=== PATIENT | female | born 1965 | race Caucasian/White ===

== ENCOUNTER 2020-08-02 06:15 | Emergency (ER) | payer BC ==
[2020-08-02 06:22] VITALS: TEMP 97.6; BMI 26.6
--- NOTE | 2020-08-02 06:41 | PDOC ---
History of Present Illness - General Chief Complaint: Pain, Acute Stated Complaint: TIGHTNESS IN CHEST,PAIN X 3 DAYS Time Seen by Provider: 08/02/20 06:29 History Source: Patient Exam Limitations: No Limitations - History of Present Illness Initial Comments: 08/02/20 06:41 This is a 54-year-old female who comes in complaining of chest tightness x3 days. Patient denies any radiation, nausea, diaphoresis or any other associated symptoms. Patient said she has been very stressed out and her blood pressure has been elevated however she does deny history of hypertension in the past. Patient's blood pressure was elevated here until we got the cardiogram once we got the cardiogram it dropped almost 50 points. As soon as she relaxed and her symptoms pretty much resolved. Allergies: as per nursing notes Past Medical History: none Social history: Lives with family. No smoking. No alcohol. No illicit drugs. Surgical history: None General: No fevers or chills, no weakness, no weight loss HEENT: No change in vision. No sore throat,. No ear pain CardioVascular: + chest discomfort. No shortness of breath Respiratory:No cough, or wheezing. Gastrointestinal: no nausea, vomiting, diarrhea or constipation, No rectal bleeding Genitourinary: No dysuria, hematuria, or frequency Musculoskeletal: No joint or muscle pain or swelling Neurologic: No headache, vertigo, dizziness or loss of consciousness Psychiatric: nor depression Skin: No rashes or easy bruising Endocrine: no increased thirst or abnormal weight change Allergic: no skin or latex allergy All other systems reviewed and normal Exam: General: Well-nourished well-developed individual, no acute distress HEENT: Throat: Normal, tonsils normal, no erythema or exudate Neck: Supple, no meningeal signs, no lymphadenopathy Eyes::Pupils equal reactive and round, extraocular motion intact Chest: Nontender to palpation Cardiac: S1-S2 normal, regular rate and rhythm, no murmurs rubs or gallops Respiratory: Lungs clear to auscultation bilateral Abdomen: Soft, nondistended, normal bowel sounds, there is no tenderness on palpation diffusely Extremities: Warm, dry, no cyanosis, clubbing, or edema Skin: No rashes Neuro: Alert and oriented x3, CN II - XII intact, nonfocal exam with normal strength, normal sensation, normal reflexes, normal gait, Psych: Normal mood and affect EKG shows normal sinus rhythm at a rate of [address]-T wave changes normal EKG. Cardiac enzymes and troponin were sent. If they are negative patient will be discharged and follow-up with her primary care doctor. Past History - Medical History Allergies/Adverse Reactions: Allergies Allergy/AdvReac Type Severity Reaction Status Date / Time Sulfa (Sulfonamide Allergy Severe Hives Verified 08/02/20 06:16 Antibiotics) Home Medications: Ambulatory Orders NK [No Known Home Medication] 08/02/20 Anemia: No Asthma: No Cancer: No Cardiac Disorders: No CVA: No COPD: No CHF: No Dementia: No Diabetes: No GI Disorders: No Disorders: No HTN: No Hypercholesterolemia: No Liver Disease: No Seizures: No Thyroid Disease: No - Reproductive History Is Patient Now?: No - Psycho-Social/Smoking History Smoking History: Never smoked Have you smoked in the past 12 months: No Information on smoking cessation initiated: No - Substance Abuse Hx (Audit-C & DAST Scrn) How often the patient has a drink containing alcohol: Never Score: In Men: 4 or > Positive; In Women: 3 or > Positive: 0 Screen Result (Pos requires Nsg. Audit-10AR): Negative In the last yr the pt used illegal drug/Rx for NonMed reason: No Score: Yes response is considered Positive: 0 Screen Result (Positive result requires Nsg. DAST-10): Negative Cardiac Specific PMH - Complaint Specific PMHX Pacemaker: No *Physical Exam - Vital Signs Last Vital Signs Temp Pulse Resp BP Pulse Ox 97.6 F 80 16 133/78 100 08/02/20 06:18 08/02/20 06:18 08/02/20 06:18 08/02/20 06:35 08/02/20 06:18 Heart Score/ECG Review - History History: Slightly suspicious - Electrocardiogram EKG: Normal - Age Age: 45-65 - Risk Factors Based on the list above the patient has:: No risk factors known - Troponin Troponin: </= normal limit - Score Heart Score - Total: 1 Discharge - Discharge Information Problems reviewed: Yes Clinical Impression/Diagnosis: Chest pain Qualifiers: Chest pain type: unspecified Qualified Code(s): R07.9 - Chest pain, unspecified Condition: Stable Disposition: HOME - Admission No - Follow up/Referral - Patient Discharge Instructions Additional Instructions: Follow-up with your primary care doctor who will probably refer you to a core winder machine operator for a stress test,' Return to the emergency department immediately with ANY new, persistent or worsening symptoms. Continue any medications as previously prescribed by your physician. You should follow up with your primary doctor as soon as possible regarding [facility] emergency department visit. . Please make sure your doctor reviews the results of your emergency evaluation. Thank you for coming to the Emergency Department today for your care. It was a pleasure to see you today. Please note that your evaluation is INCOMPLETE until you follow-up with your doctor. - Post Discharge Activity
[2020-08-02 08:37] VITALS: BP 141/81; PULSE 60
--- NOTE | 2020-08-02 08:37 | PDOC ---
*Physical Exam - Vital Signs Last Vital Signs Temp Pulse Resp BP Pulse Ox 97.6 F 80 16 133/78 100 08/02/20 06:18 08/02/20 06:18 08/02/20 06:18 08/02/20 06:35 08/02/20 06:18 - Physical Exam 08/02/20 08:36 Repeat BP 141/81 Troponin less than 0.03. EKG reviewed. Normal No further symptoms patient feels fine looks well Discharge to follow-up primary physician. Return to ER if further symptoms ED Treatment Course - ADDITIONAL ORDERS Additional order review: Laboratory Results 08/02/20 08/02/20 06:45 06:45 Creatine Kinase 103 Troponin I < 0.03 Discharge - Discharge Information Problems reviewed: Yes Clinical Impression/Diagnosis: Chest pain Qualifiers: Chest pain type: unspecified Qualified Code(s): R07.9 - Chest pain, unspecified Condition: Stable Disposition: HOME - Follow up/Referral - Patient Discharge Instructions Additional Instructions: Follow-up with your primary care doctor who will probably refer you to a cane piler for a stress test,' Return to the emergency department immediately with ANY new, persistent or worsening symptoms. Continue any medications as previously prescribed by your physician. You should follow up with your primary doctor as soon as possible regarding today's emergency department visit. . Please make sure your doctor reviews the results of your emergency evaluation. Thank you for coming to the Emergency Department today for your care. It was a pleasure to see you today. Please note that your evaluation is INCOMPLETE until you follow-up with your doctor. - Post Discharge Activity
--- NOTE | 2020-08-02 09:09 | EKG ---
Test Reason : Blood Pressure : / mmHG Vent. Rate : 064 BPM Atrial Rate : 064 BPM P-R Int : 174 ms QRS Dur : 092 ms QT Int : 422 ms P-R-T Axes : 057 001 052 degrees QTc Int : 435 ms NORMAL SINUS RHYTHM NORMAL ECG NO PREVIOUS ECGS AVAILABLE Confirmed by MD RAEGAN, HU ([id number]) on 08/02/2020 9:08:19 AM Referred By: MISA VIDALES Confirmed By:HU CARLIN MD
== END 2020-08-02 08:40 | disposition home or self-care (01) ==
LOC: FER 06:15
DX: R07.9 Chest pain, unspecified (principal)
CPT/HCPCS: 36415; 82550; 84484; 93005; 99284-25